=== PATIENT | male | born 1970 | race Caucasian/White ===

== ENCOUNTER 2023-01-06 08:11 | Emergency (ER) | payer MEDICAID ==
[~2023-01-06] VITALS: Ht 180.3 cm; Wt 86.0 kg
[2023-01-06 08:16] VITALS: BP 140/82; PULSE 73; RESP 20; TEMP 98.4; O2SAT 97
[2023-01-06] MEDS ORDERED: LIDO30CR TP (12:18)
== END 2023-01-06 15:36 | disposition home or self-care (01) ==
LOC: ER 08:11
DX: K64.4 Residual hemorrhoidal skin tags (principal); Z90.49 Acquired absence of other specified parts of digestive tract; Z98.890 Other specified postprocedural states
CPT/HCPCS: 99283